=== PATIENT | male | born 1955 | race Caucasian/White ===

== ENCOUNTER → 2020-07-13 08:40 | Outpatient (BNVA) | payer BC, SELFPAY | PROVIDERS: PCP Internal Medicine; Visit Provider Internal Medicine | DX: E78.5 Hyperlipidemia, unspecified (principal); I10 Essential (primary) hypertension | CPT/HCPCS: 80053; 80061; 83036; 84153; 84443; 85025 ==

== ENCOUNTER 2021-01-13 11:52 | Outpatient (RCR) | payer BC, SELFPAY | END 2021-01-31 23:59 | disposition home or self-care (01) | LOC: SPT 11:52 | PROVIDERS: PCP Internal Medicine; Referring Provider Internal Medicine; Visit Provider Internal Medicine | DX: M54.9 Dorsalgia, unspecified (principal) | CPT/HCPCS: 97110; 97161 ==

== ENCOUNTER → 2022-08-09 08:58 | Outpatient (BNVA) | payer BC, SELFPAY | PROVIDERS: PCP Family Medicine; Visit Provider Family Medicine | DX: E78.5 Hyperlipidemia, unspecified (principal); I10 Essential (primary) hypertension; Z01.89 Encounter for other specified special examinations; Z12.5 Encounter for screening for malignant neoplasm of prostate | CPT/HCPCS: 80053; 80061; 84443; 85025; G0103 ==

== ENCOUNTER → 2023-06-28 08:35 | Outpatient (BNVA) | payer MEDICARE, BC, SELFPAY | PROVIDERS: PCP Family Medicine; Visit Provider Family Medicine | DX: I10 Essential (primary) hypertension (principal); E78.2 Mixed hyperlipidemia; Z12.5 Encounter for screening for malignant neoplasm of prostate; E87.6 Hypokalemia | CPT/HCPCS: 80048; 80061; G0103 ==

== ENCOUNTER 2023-09-19 10:56 | Outpatient (CLI) | payer MEDICARE, BC, SELFPAY ==
--- NOTE | 2023-09-19 11:08 | XRR_ITS ---
PROCEDURE INFORMATION: Exam: XR Abdomen Exam date and time: 09/19/2023 11:11 AM Age: 68 years old Clinical indication: Other: Left flank pain TECHNIQUE: Imaging protocol: Radiologic exam of the abdomen. Views: Frontal supine view of the abdomen. 1 View. COMPARISON: CR XR ribs LT 2V* [id number] 09/19/2023 11:11 AM FINDINGS: Gastrointestinal tract: Normal. No bowel dilation. Bones/joints: Unremarkable. XR/XR KUB [id number] IMPRESSION: No acute findings.
--- NOTE | 2023-09-19 11:08 | XRR_ITS ---
PROCEDURE INFORMATION: Exam: XR Left Ribs Exam date and time: 09/19/2023 11:11 AM Age: 68 years old Clinical indication: Other: Left flank pain TECHNIQUE: Imaging protocol: Radiologic exam of the left ribs. Views: 2 views. COMPARISON: CR XR KUB [id number] 09/19/2023 11:11 AM FINDINGS: Bones/joints: Negative for acute bone abnormality. Soft tissues: Normal. XR/XR ribs LT 2V* [id number] IMPRESSION: No acute findings.
== END 2023-09-19 10:57 | disposition home or self-care (01) ==
PROVIDERS: PCP Family Medicine; Visit Provider Family Medicine
DX: R10.9 Unspecified abdominal pain (principal)
CPT/HCPCS: 71100; 74018; 81003

== ENCOUNTER 2023-11-29 20:45 | Emergency (ER) | payer MEDICARE, SELFPAY ==
[2023-11-29] VITALS (7 sets, daily range): BP systolic 147–227; BP diastolic 83–111; PULSE 60–88; RESP 16–19; TEMP 36.8; O2SAT 96–98; BMI 32.2
[2023-11-29 21:22] LABS: Basophils # 0.1 10^3/uL (0.0-0.1); Basophils % 0.7 %; Eosinophils # 0.2 10^3/uL (0.0-0.8); Eosinophils % 2.3 %; Hematocrit 50.2 % (37-53); Lymphocytes # 2.3 10^3/uL (0.8-4.8); Lymphocytes % 23.2 %; Mean Corpuscular HGB Conc 33.3 g/dL (30-55); Mean Corpuscular Hemoglobin 28.8 pg (27-33); Mean Corpuscular Volume 86.7 fl (82-101); Mean Platelet Volume 8.8 fL (7.4-10.4); Monocytes # 0.7 10^3/uL (0.2-0.9); Monocytes % 6.5 %; Neutrophils # 6.76 10^3/uL (1.8-7.7); Nucleated Red Blood Cells % 0 %; Platelet Count 190 10^3/cmm (157-399); Red Blood Count 5.79 10^6/uL (3.85-5.65); Red Cell Distribution Width 13.2 % (12.1-15.1); White Blood Count 10.09 10^3/uL (3.29-11.43)
--- NOTE | 2023-11-29 21:22 | ED_ITS ---
HPI - General Adult 2 General: Chief complaint: General Medical Stated complaint: blood pressure high Time Seen by Provider: 11/29/23 21:11 Source: patient Mode of arrival: ambulatory Limitations: no limitations History of Present Illness: 68-year-old male has a history of hypert ension he is on losartan 100 mg he states that his blood pressure been running high over the last week states is running over 200 today states he is felt just off he is felt like his heart is been pounding in some slight headaches at time he denies any chest pain states he feels fine currently has had no severe symptoms. No difficulty walking no vomiting. Associated symptoms: Deny chest pain, dyspnea, headache(s), nausea, rash or vomiting Related Data Previous Rx's Medication Instructions Recorded atorvastatin 10 mg tablet See Rx Instructions .Route 08/14/23 .COMPLEX #90 tabs losartan 100 mg tablet 100 mg PO DAILY #90 tabs 09/25/23 amlodipine 10 mg tablet (Norvasc) 10 mg PO DAILY #30 tabs 11/29/23 Allergies Allergy/AdvReac Type Severity Reaction Status Date / Time latex Allergy Intermediate face Verified 09/19/23 10:27 itching Review of Systems 2 Const: Denies: fever(s), chills, body aches or change in appetite Eyes: Denies: blurry vision or eye discomfort ENMT: Denies: throat pain or dental pain Card: Denies: chest pain Resp: Denies: dyspnea GI: Denies: abdominal pain, nausea, vomiting or diarrhea : Denies: dysuria Musc: Denies: neck pain or back pain Skin/Breast: Denies: rash Neuro: Denies: headache(s) Psych: Denies: depression PFSH ED 2 PFSH: Medical History Essential (primary) hypertension Hyperlipemia Family History Mother Diabetes Heart disease Stroke Hypertension Father Hypertension Social History Smoking and tobacco/nicotine status: never used tobacco/nicotine Second hand smoke exposure: No Alcohol intake: current Alcohol intake frequency: holidays/special occasions only Alcohol type: beer and wine Substance/Drug Use: never Adopted: No Lives independently: Yes Household members: spouse Marital status: Number of children: 4 service: No Do you think of yourself as: Straight/Heterosexual Current gender identity: Male Physical Exam 2 Const: COMMON NORMALS: no acute distress, patient oriented x3 and healthy appearing HENMT: COMMON NORMALS: normocephalic and atraumatic HEAD & SCALP: n ormocephalic and atraumatic Eye: COMMON NORMALS: Equal, round and reactive pupils present and EOMs intact bilaterally PUPIL: Yes Equal, round and reactive pupils present Neck/C-Spine: COMMON NORMALS: full ROM and supple Chest: COMMONS NORMALS: normal inspection of the chest and normal palpation of entire chest wall Resp: COMMON NORMALS: normal respiratory effort, No retractions, No use of accessory muscles and clear to auscultation bilaterally AUSCULTATION: clear to auscultation bilaterally Cardio: COMMON NORMALS: regular rate, regular rhythm and No murmurs present (Cardio) RATE: regular rate RHYTHM: regular rhythm GI: COMMON NORMALS: Normal to inspection, nondistended, normoactive bowel sounds present, Soft to palpation, non-tender and no masses PALPATION: Yes Soft to palpation Extremity: COMMON NORMALS: normal to inspection and full ROM Neuro: COMMON NORMALS: patient oriented x3, moves all extremities and no focal motor deficits Psych: COMMON NORMALS: mental status grossly normal, Normal thought process present and cooperative THOUGHT PROCESS: Normal thought process present Skin: COMMON NORMALS: no rashes or lesions noted and no wounds GENERAL SKIN EXAM: no rashes or lesions noted Course 2 Vital Signs: Vital signs: Vital Signs Temperature 98.2 F 11/29/23 20:51 Pulse Rate 69 11/29/23 22:30 Respiratory Rate 17 11/29/23 22:30 Blood Pressure 162/86 11/29/23 22:30 Pulse Oximetry 97 11/29/23 22:30 Oxygen Delivery Me thod Room Air 11/29/23 22:30 MDM - General Adult Medical Decision Making Patient presents with hypertension his blood work here is normal exam asymptomatic with hypertension his blood pressures improved here we will start him on Norvasc yesterday take a log of his blood pressure follow-up with PCP in 7 to 10 days return if worsening. Medical Records I reviewed the patient's medical records. Lab Data I reviewed the patient's lab results. 11/29/23 21:13 11/29/23 21:13 Laboratory Results WBC 10.09 10^3/uL (3.29-11.43) 11/29/23 21:13 RBC 5.79 10^6/uL (3.85-5.65) H 11/29/23 21:13 Hgb 16.70 g/dL (11.27-16.99) 11/29/23 21:13 Hct 50.2 % (37-53) 11/29/23 21:13 MCV 86.7 fl (82-101) 11/29/23 21:13 MCH 28.8 pg (27-33) 11/29/23 21:13 MCHC 33.3 g/dL (30-55) 11/29/23 21:13 RDW 13.2 % (12.1-15.1) 11/29/23 21:13 Plt Count 190 10^3/cmm (157-399) 11/29/23 21:13 MPV 8.8 fL (7.4-10.4) 11/29/23 21:13 Neut % (Auto) 67.0 % 11/29/23 21:13 Lymph % (Auto) 23.2 % 11/29/23 21:13 [place] % (Auto) 6.5 % 11/29/23 21:13 Eos % (Auto) 2.3 % 11/29/23 21:13 Baso % (Auto) 0.7 % 11/29/23 21:13 Neut # (Auto) 6.76 10^3/uL (1.8-7.7) 11/29/23 21:13 Lymph # (Auto) 2.3 10^3/uL (0.8-4.8) 11/29/23 21:13 [place] # (Auto) 0.7 10^3/uL (0.2-0.9) 11/29/23 21:13 Eos # (Auto) 0.2 10^3/uL (0.0-0.8) 11/29/23 21:13 Baso # (Auto) 0.1 10^3/uL (0.0-0.1) 11/29/23 21:13 Nucleated RBC % (auto) 0 % 11/29/23 21:13 Nucleated RBCs # 0.0 /100WBC 11/29/23 21:13 Sodium 141 mmol/L (136-145) 11/29/23 21:13 Potassium 4.0 mmol/L (3.5-5.1) 11/29/23 21:13 Chloride 104 mmol/L (98-107) 11/29/23 21:13 Carbon Dioxide 23 mmol/L (22-29) 11/29/23 21:13 Anion Gap 18.0 (5-19) 11/29/23 21:13 BUN 23 mg/dL (8-23) 11/29/23 21:13 Creatinine 0.9 mg/dL (0.7-1.2) 11/29/23 21:13 GFR Calculation 84.2 mL/min (90-130) L 11/29/23 21:13 Glucose 102 mg/dL (65-115) 11/29/23 21:13 Calculated Osmolality 296 mOsm/kg (285-295) H 11/29/23 21:13 Calcium 9.1 mg/dL (8.5-10.5) 11/29/23 21:13 Total Bilirubin 1.2 mg/dL (0.15-1.2) 11/29/23 21:13 AST 35 U/L (0-40) 11/29/23 21:13 ALT 53 U/L (0-41) H 11/29/23 21:13 Alkaline Phosphatase 86 U/L (40-130) 11/29/23 21:13 Troponin T Baseline 18 ng/L (0-15) H 11/29/23 21:13 Troponin T 120 Minute 16.65 ng/L (0-15) H 11/29/23 22:58 Delta Troponin T -1.35 ABS# (0-10) L 11/29/23 22:58 Total Protein 7.8 g/dL (6.6-8.7) 11/29/23 21:13 Albumin 4.8 g/dL (3.5-5.2) 11/29/23 21:13 Globulin 3.0 g/dL (1.3-4.6) 11/29/23 21:13 Urine Color Yellow (Yellow) 11/29/23 21:40 Urine Appearance Clear (CLEAR) 11/29/23 21:40 Urine pH 7.0 (5-7) 11/29/23 21:40 Ur Specific [place] 1.014 (1.005-1.030) 11/29/23 21:40 Urine Protein Negative (Negative) 11/29/23 21:40 Urine Glucose (UA) Negative (Normal) 11/29/23 21:40 Urine Ketones Negative (Negative) 11/29/23 21:40 Urine Blood Negative (Negative) 11/29/23 21:40 Urine Nitrate Negative (Negative) 11/29/23 21:40 Urine Bilirubin Negative (Negative) 11/29/23 21:40 Urine Urobilinogen 1.0 mg/dL (Negative) 11/29/23 21:40 Ur Leukocyte Esterase Negative (Negative) 11/29/23 21:40 Urine RBC 0-2 /hpf (0-2) 11/29/23 21:40 Urine WBC 0-5 /hpf (0-5) 11/29/23 21:40 Ur Squamous Epith Cells 0-5 /hpf (0-5) 11/29/23 21:40 Amorphous Sediment Not Reportable 11/29/23 21:40 Urine Bacteria None seen /hpf (NONE) 11/29/23 21:40 Hyaline Casts 0-4 /lpf H 11/29/23 21:40 All radiology interpretation(s) finalized by discharge EKG Data EKG 1: I personally reviewed and interpreted this EKG as follows: EKG interpretation date: 11/29/23 EKG interpretation time: 21:59 Interpretation: nsr [address] elevation qrs 137 qtc 461 EKG 2: I personally reviewed and interpreted this EKG as follows: EKG interpretation date: 11/29/23 EKG interpretation time: 23:00 Interpretation: nsr hr [address] elevation qrs 136 qtc 473 Discharge Plan Discharge Patient Disposition: Home Clinical Impression: Hypertension Condition: Stable Prescriptions: New Norvasc 10 mg tablet 10 mg PO DAILY Qty: 30 0RF No Action atorvastatin 10 mg tablet See Rx Instructions .ROUTE .COMPLEX Qty: 90 3RF Dose Instruction: TAKE 1 TABLET BY MOUTH EVERY DAY Rx Instructions: TAKE 1 TABLET BY MOUTH EVERY DAY losartan 100 mg tablet 100 mg PO DAILY Qty: 90 3RF Discharge Orders: Discharge ED (Routine); Ordered 11/29/23 Ordered By: Dmitri Heredia Referrals: Lukasz Han DO [Primary Care Provider] - 4-7 days Discharge Diet: Advance as tolerated Discharge Activity: Resume usual activity Patient Instructions: Hypertension (ED) Coding Level of Care Code ED Seamer [employer] for Carleen White
[2023-11-29 21:41] LABS: Alanine Aminotransferase 53 U/L (0-41); Albumin Level 4.8 g/dL (3.5-5.2); Alkaline Phosphatase 86 U/L (40-130); Aspartate Amino Transferase 35 U/L (0-40); Blood Urea Nitrogen 23 mg/dL (8-23); Calcium 9.1 mg/dL (8.5-10.5); Carbon Dioxide 23 mmol/L (22-29); Chloride 104 mmol/L (98-107); Creatinine Clr Calc Pharmacy 86.7844; Glomerular Filtration Rate 84.2 mL/min (90-130); Glucose 102 mg/dL (65-115); Osmolality Calculated 296 mOsm/kg (285-295); Sodium 141 mmol/L (136-145); Total Bilirubin 1.2 mg/dL (0.15-1.2); Total Protein 7.8 g/dL (6.6-8.7)
[2023-11-29] MEDS: hyDRALAzine 20 mg/mL INJ 1 mL 10 MG IVP ×2 (21:45→22:16)
[2023-11-29 21:52] LABS: Charge for UA Resulting for Rev
[2023-11-29 21:56] LABS: Bilirubin Urine Negative (Negative); Blood Urine Negative (Negative); Glucose Urine UA Negative (Normal); Ketones Urine Negative (Negative); Leukocyte Esterase Urine Negative (Negative); Nitrate Urine Negative (Negative); Protein Urine Negative (Negative); Specific Gravity, Urine 1.014 (1.005-1.030); Urine Appearance Clear (CLEAR); Urine Color Yellow (Yellow)
--- NOTE | 2023-11-29 21:59 | ECG_ITS ---
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 Measurements Intervals [place] Rate: 60 P: 59 RI: 157 QRS: -3 QRSD: 137 T: 15 QT: 460 QTc: 461 Interpretive Statements SINUS RHYTHM RIGHT BUNDLE BRANCH BLOCK [120+ ms QRS DURATION, UPRIGHT V1, 40+ ms S IN I/aVL/V4/V5/V6] MODERATE T-WAVE ABNORMALITY, CONSIDER ANTEROLATERAL ISCHEMIA [-0.1+ mV T-WAVE IN V3-V6] No previous ECG available for comparison Electronically Signed On 11-30-2023 9:03:28 CDT by Toño Cook M.D. [id number]
--- NOTE | 2023-11-29 22:04 | XRR_ITS ---
PROCEDURE INFORMATION: Exam: XR Chest Exam date and time: 11/29/2023 10:44 PM Age: 68 years old Clinical indication: Other: Hypertension; Additional info: HTN TECHNIQUE: Imaging protocol: Radiologic exam of the chest. Views: 1 view. COMPARISON: CR XR ribs LT 2V* [id number] 09/19/2023 11:11 AM FINDINGS: Lungs: Unremarkable. No consolidation. Pleural spaces: Unremarkable. No pleural effusion. No pneumothorax. Heart/Mediastinum: Unremarkable. No cardiomegaly. Bones/joints: Mild degenerative disease of bilateral acromioclavicular joints. Mild degenerative disease of the thoracic spine. XR/XR chest 1V portable [id number] IMPRESSION: No acute cardiopulmonary process.
[2023-11-29 22:05] LABS: Bacteria Urine None Seen /hpf; Hyaline Casts Urine 0-4 /lpf; RBC Urine 0-2 /hpf (0-2); Squamous Epithelial Cell Urine 0-5 /hpf (0-5); WBC Urine 0-5 /hpf (0-5)
[2023-11-29 22:40] LABS: Troponin(5th) Baseline 18 ng/L (0-15)
--- NOTE | 2023-11-29 23:00 | ECG_ITS ---
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 Measurements Intervals [place] Rate: 62 P: 19 NM: 107 QRS: 5 QRSD: 136 T: 29 QT: 467 QTc: 477 Interpretive Statements SINUS RHYTHM WITH SHORT NM INTERVAL RIGHT BUNDLE BRANCH BLOCK [120+ ms QRS DURATION, UPRIGHT V1, 40+ ms S IN I/aVL/V4/V5/V6] MODERATE T-WAVE ABNORMALITY, CONSIDER ANTEROLATERAL ISCHEMIA [-0.1+ mV T-WAVE IN V3-V6] Compared to ECG 11/29/2023 21:59:56 Short NM interval now present T-wave abnormality still present Possible ischemia still present Electronically Signed On 11-30-2023 9:04:28 CDT by Toño Cook M.D. [id number]
[2023-11-29 23:22] LABS: Troponin 5 2HR 16.65 ng/L (0-15)
[2023-11-29 23:23] LABS: Troponin 5 2HR Delta -1.35 ABS# (0-10)
== END 2023-11-29 23:56 | disposition home or self-care (01) ==
PROVIDERS: Emergency Provider Emergency Medicine; PCP Family Medicine
DX: I10 Essential (primary) hypertension (principal); E78.5 Hyperlipidemia, unspecified
CPT/HCPCS: 36415; 71045; 80053; 81003; 81015; 84484; 85025; 93005; 96374; 96376; 99285; J0360

== ENCOUNTER → 2024-04-15 14:00 | Outpatient (BNVA) | payer MEDICARE, SELFPAY | PROVIDERS: PCP Family Medicine; Visit Provider Surgery | DX: Z12.11 Encounter for screening for malignant neoplasm of colon (principal) | CPT/HCPCS: 99024; 99204 ==

== ENCOUNTER 2024-05-01 08:28 | Day surgery (SDC) | payer MEDICARE, SELFPAY ==
[2024-05-01 08:42] VITALS: BP 110/81; PULSE 66; RESP 18; TEMP 36.1; O2SAT 95; BMI 29.2
[2024-05-01] MEDS: sodium chloride 0.9% 500 ML 15 ML IV (08:50)
--- NOTE | 2024-05-01 08:58 | P.ANESASSM_ITS ---
Pre-Anesthetic Assessment Height/Weight: Height 1.7 m Weight 84.822 kg Temp Pulse Resp BP Pulse Ox O2 Del Method 97 F L 66 18 110/81 95 Room Air 05/01/24 08:42 05/01/24 08:42 05/01/24 08:42 05/01/24 08:42 05/01/24 08:42 05/01/24 08:42 Operation Date: 05/01/24 09:30 Proposed Procedures p Colonoscopy 14221, G0121, Z12.11(Not Applicable) - Qasim Kennedy DO Familial anesthetic complications: None Was Beta Purnima taken within 24 hours: N/A Was Clonidine taken within 24 hours: N/A Last intake: Intake Last Liquid Date 04/30/24 Last Liquid Time 21:30 Last Solid Date 04/29/24 Last Solid Time 20:00 Social No alcohol and No tobacco Exam alert, oriented x 3, clear to auscultation bilaterally and regular rate & rhythm Airway Mallampati: Class II Dentition: chipped (but covered now) and other (missing teeth) Pulmonary Sleep Apnea CV/HEM Hypertension Metabolic Hyperlipidemia Anesthetic Plan ASA status: 3 Anesthesia: MAC Risk of > 500 ml blood loss (7ml/kg in children): No Medications/Allergies Home Medications Medication Instructions Recorded Confirmed Last Taken Type amlodipine 10 mg tablet (Norvasc) 10 mg PO DAILY #30 tabs 11/29/23 04/29/24 04/30/24 Rx losartan 100 1 tab PO DAILY 04/15/24 04/29/24 05/01/24 06:30 History mg-hydrochlorothiazide 12.5 mg tablet atorvastatin 10 mg tablet 10 mg PO DAILY 04/29/24 04/29/24 04/30/24 History Allergies Allergy/AdvReac Type Severity Reaction Status Date / Time latex Allergy Intermediate face Verified 04/29/24 09:27 itching Current Medications Generic Name Dose Route Start Last Admin Trade Name Freq PRN Reason Stop Dose Admin Sodium Chloride 500 mls @ 15 mls/hr 05/01/24 08:32 05/01/24 08:50 Sodium Chloride 0.9% IV 05/02/24 08:31 15 mls/hr .Q24H PRN Administration COLONOSCOPY FLUIDS PFSH Anesthesia Medical History Essential (primary) hypertension Hyperlipemia Family History Mother Diabetes Heart disease Stroke Hypertension Father Hypertension Social History Smoking and tobacco/nicotine status: never used tobacco/nicotine Second hand smoke exposure: No Alcohol intake: current Alcohol intake frequency: holidays/special occasions o nly Alcohol type: beer and wine Substance/Drug Use: never Adopted: No Lives independently: Yes Household members: spouse Marital status: Number of children: 4 service: No Do you think of yourself as: Straight/Heterosexual Current gender identity: Male Data Anesthesia Cardiac Studies: No Data to Display
--- NOTE | 2024-05-01 09:52 | W.PM.OPSUD ---
Surgery/Procedure H&P Update DATE OF PROCEDURE: May 01, 2024 DATE H&P PERFORMED: 04/15/24 H&P UPDATE INFORMATION: I have reviewed H&P completed within last 30 days, I have examined patient prior to procedure and No changes to prior documentation PLANNED PROCEDURE: Operation Date: 05/01/24 09:30 Proposed Procedures p Colonoscopy 56310, G0121, Z12.11(Not Applicable) - Qasim Kennedy, DO
[2024-05-01 10:10] VITALS: BP 90/60; PULSE 50; RESP 16; TEMP 36.1; O2SAT 96
[2024-05-01 10:17] VITALS: BP 113/62; PULSE 51; RESP 18; O2SAT 94
[2024-05-01 10:24] VITALS: BP 94/73; PULSE 51; RESP 18; O2SAT 96
--- NOTE | 2024-05-01 10:30 | ANE.PACU2 ---
Inpatient post-anesthesia follow up: Airway intact: Yes Vital signs: Temperature 97.0 F Pulse Rate 51 Respiratory Rate 18 Blood Pressure 94/73 Pulse Oximetry 96 Oxygen Delivery Me thod Room Air Oxygen Flow Rate Fraction of Inspir ed Oxygen Hydration adequate: Yes Nausea and vomiting: No Pain level: 1 Mental status: Baseline
== END 2024-05-01 10:38 | disposition home or self-care (01) ==
PROVIDERS: PCP Family Medicine; Visit Provider Surgery
PROC: 0DJD8ZZ Inspection of Lower Intestinal Tract, Via Natural or Artificial Opening Endoscopic (ICD-10-PCS; CPT 45378; principal; 2024-05-01 09:30)
DX: Z12.11 Encounter for screening for malignant neoplasm of colon (principal); K64.8 Other hemorrhoids; D12.2 Benign neoplasm of ascending colon; K08.409 Partial loss of teeth, unspecified cause, unspecified class; K08.89 Other specified disorders of teeth and supporting structures; I10 Essential (primary) hypertension; E78.5 Hyperlipidemia, unspecified; G47.30 Sleep apnea, unspecified; Z79.899 Other long term (current) drug therapy; Z91.040 Latex allergy status
CPT/HCPCS: 45385; 88305; J2704; J7040

== ENCOUNTER → 2024-05-13 10:16 | Outpatient (BNVA) | payer MEDICARE, SELFPAY | PROVIDERS: PCP Family Medicine; Visit Provider Surgery | DX: Z09 Encounter for follow-up examination after completed treatment for conditions other than malignant neoplasm (principal); D37.4 Neoplasm of uncertain behavior of colon; K64.8 Other hemorrhoids | CPT/HCPCS: 99214 ==

== ENCOUNTER 2024-07-31 07:27 | Outpatient (CLI) | payer MEDICARE, SELFPAY ==
[2024-07-31 07:57] LABS: Basophils # 0.1 10^3/uL (0.0-0.1); Basophils % 1.2 %; Eosinophils # 0.3 10^3/uL (0.0-0.8); Eosinophils % 3.4 %; Lymphocytes # 1.4 10^3/uL (0.8-4.8); Lymphocytes % 17.8 %; Mean Corpuscular HGB Conc 32.8 g/dL (30-55); Mean Corpuscular Hemoglobin 29.5 pg (27-33); Mean Platelet Volume 9.7 fL (7.4-10.4); Monocytes # 0.5 10^3/uL (0.2-0.9); Neutrophils # 5.71 10^3/uL (1.8-7.7); Neutrophils % 71.2 %; Nucleated Red Blood Cells % 0 %; Red Blood Count 5.11 10^6/uL (3.85-5.65); Red Cell Distribution Width 13.2 % (12.1-15.1); White Blood Count 8.02 10^3/uL (3.29-11.43)
[2024-07-31 10:17] LABS: Platelet Count 76 10^3/cmm (157-399)
== END 2024-07-31 07:28 | disposition home or self-care (01) ==
PROVIDERS: PCP Family Medicine; Visit Provider Family Medicine
DX: R79.1 Abnormal coagulation profile (principal)
CPT/HCPCS: 36415; 85025

== ENCOUNTER 2024-08-14 07:14 | Outpatient (CLI) | payer MEDICARE, SELFPAY ==
[2024-08-14 07:48] LABS: Basophils # 0.1 10^3/uL (0.0-0.1); Basophils % 0.9 %; Eosinophils # 0.2 10^3/uL (0.0-0.8); Eosinophils % 2.3 %; Hematocrit 44.5 % (37-53); Lymphocytes # 1.7 10^3/uL (0.8-4.8); Lymphocytes % 19.3 %; Mean Corpuscular HGB Conc 34.2 g/dL (30-55); Mean Corpuscular Hemoglobin 29.5 pg (27-33); Mean Corpuscular Volume 86.2 fl (82-101); Mean Platelet Volume 10.8 fL (7.4-10.4); Monocytes # 0.6 10^3/uL (0.2-0.9); Monocytes % 6.4 %; Neutrophils # 6.23 10^3/uL (1.8-7.7); Neutrophils % 70.6 %; Nucleated Red Blood Cells % 0 %; Platelet Count 98 10^3/cmm (157-399); Red Blood Count 5.16 10^6/uL (3.85-5.65); Red Cell Distribution Width 13.1 % (12.1-15.1); White Blood Count 8.81 10^3/uL (3.29-11.43)
== END 2024-08-14 07:15 | disposition home or self-care (01) ==
PROVIDERS: PCP Family Medicine; Visit Provider Family Medicine
DX: R79.1 Abnormal coagulation profile (principal)
CPT/HCPCS: 36415; 85025

== ENCOUNTER 2024-09-13 07:21 | Outpatient (CLI) | payer MEDICARE, SELFPAY ==
[2024-09-13 07:56] LABS: Basophils # 0.1 10^3/uL (0.0-0.1); Eosinophils # 0.2 10^3/uL (0.0-0.8); Eosinophils % 2.9 %; Hematocrit 45.2 % (37-53); Lymphocytes # 1.6 10^3/uL (0.8-4.8); Lymphocytes % 20.6 %; Mean Corpuscular HGB Conc 33.6 g/dL (30-55); Mean Corpuscular Volume 86.3 fl (82-101); Mean Platelet Volume 9.7 fL (7.4-10.4); Monocytes # 0.5 10^3/uL (0.2-0.9); Monocytes % 6.9 %; Neutrophils # 5.26 10^3/uL (1.8-7.7); Neutrophils % 68.3 %; Nucleated Red Blood Cells % 0 %; Platelet Count 107 10^3/cmm (157-399); Red Blood Count 5.24 10^6/uL (3.85-5.65); Red Cell Distribution Width 12.9 % (12.1-15.1)
== END 2024-09-13 07:22 | disposition home or self-care (01) ==
LOC: LAB 07:23
PROVIDERS: PCP Family Medicine; Visit Provider Family Medicine
DX: E78.5 Hyperlipidemia, unspecified (principal)
CPT/HCPCS: 85025

== ENCOUNTER 2024-10-02 07:20 | Outpatient (CLI) | payer MEDICARE, SELFPAY ==
--- NOTE | 2024-10-02 07:25 | XR_ITS ---
WS: [id number] XR shoulder RT min 2V* [id number] REASON FOR EXAM: PAIN IN R SHOULDER FINDINGS: No fracture or focal bone lesion. Significant narrowing of the acromioclavicular joint with moderate subchondral sclerosis and osteophytosis. Glenohumeral joint space is not optimally demonstrated but is intact and at least mildly narrowed. There is moderate subchondral sclerosis of the glenoid. Minimal sclerosis in the greater biceps tuberosity. XR/XR shoulder RT min 2V* [id number] IMPRESSION: Moderate osteoarthritis of the acromioclavicular joint. Mild osteoarthritis of the glenohumeral joint. Minimal rotator cuff tendon arthropathy.
== END 2024-10-02 07:21 | disposition home or self-care (01) ==
LOC: RAD 07:20
PROVIDERS: PCP Family Medicine; Visit Provider Family Medicine
DX: M19.011 Primary osteoarthritis, right shoulder (principal)
CPT/HCPCS: 73030

== ENCOUNTER → 2024-10-31 08:12 | Outpatient (BNVA) | payer MEDICARE, SELFPAY | PROVIDERS: PCP Family Medicine; Visit Provider Orthopaedic Surgery | DX: M19.011 Primary osteoarthritis, right shoulder (principal); G89.29 Other chronic pain | CPT/HCPCS: 99204 ==

== ENCOUNTER → 2024-11-21 08:02 | Outpatient (BNVA) | payer MEDICARE, SELFPAY | PROVIDERS: PCP Family Medicine; Visit Provider Orthopaedic Surgery | DX: M25.511 Pain in right shoulder (principal); G89.29 Other chronic pain | CPT/HCPCS: 99213 ==

== ENCOUNTER → 2025-01-14 12:57 | Outpatient (BNVA) | payer MEDICARE, SELFPAY | PROVIDERS: PCP Family Medicine; Visit Provider Orthopaedic Surgery | DX: M19.011 Primary osteoarthritis, right shoulder (principal) | CPT/HCPCS: 20610; 99213; J3301; J3490; J9999 ==

== ENCOUNTER → 2025-01-28 08:05 | Outpatient (BNVA) | payer MEDICARE, SELFPAY | PROVIDERS: PCP Family Medicine; Visit Provider Orthopaedic Surgery | DX: M25.511 Pain in right shoulder (principal); G89.29 Other chronic pain | CPT/HCPCS: 99213 ==